=== PATIENT | male | born 1990 | race African-American/Black ===

== ENCOUNTER 2018-01-22 23:40 | Emergency (ER) | payer SELFPAY ==
[~2018-01-22] VITALS: Ht 170.2 cm; Wt 65.0 kg
[2018-01-23] MEDS ORDERED: METHYLPREDNISOLONE SOD SUCC 125 MG/2 ML VIAL IM STA (00:01)
[2018-01-23] MEDS ORDERED: IPRATROPIUM BROMIDE (0.02%) 0.5MG/2.5ML NEB HHN STA ×2 (00:01→01:30)
[2018-01-23] MEDS ORDERED: ALBUTEROL (0.083%) 2.5MG/3ML NEB HHN STA ×2 (00:01→01:30)
[2018-01-23] MEDS ORDERED: ALBUTEROL (0.5%) 2.5MG/0.5ML NEB HHN ONE ×2 (00:12→01:46)
[2018-01-23 03:25] VITALS: BP 124/78
== END 2018-01-23 03:27 | disposition home or self-care (01) ==
LOC: ER 23:40
DX: J45.901 Unspecified asthma with (acute) exacerbation (principal); R03.0 Elevated blood-pressure reading, without diagnosis of hypertension; F12.90 Cannabis use, unspecified, uncomplicated
CPT/HCPCS: 94640; 96372; 99284; J2930; J7611